=== PATIENT | male | born 1940 | race Caucasian/White ===

== ENCOUNTER 2017-05-10 11:56 | Emergency (ER) | payer OTHER, BC ==
[~2017-05-10 11:56] MED LIST: ARICEPT5 MG PO; ASACOL HD800 MG PO; ASPIRIN81 M2 PO; BESIVANCE5 ML RIGHT EYE; CEREFOLIN NAC1 EAC1 PO; DEPLIN-ALGAL O1 EAC1 PO; FISH OIL 1,0001 EAC7 PO; LORAZEPAM0.5 MG PO; LOTEMAX5 ML RIGHT EYE; MINOCYCLINE HCL75 M1 PO; PAROXETINE HCL30 MG PO; PROLENSA1.6 ML RIGHT EYE; PROMETHAZINE HC25 M1 PO; PROTONIX40 MG PO; TOPROL XL25 MG PO; VITAMIN D1000 INTUN PO
== END 2017-05-10 16:56 ==
LOC: TRA 11:56
PROC: 5A12012 Performance of Cardiac Output, Single, Manual (ICD-10-PCS; principal; 2017-05-10)
DX: I46.9 Cardiac arrest, cause unspecified (principal); Z95.0 Presence of cardiac pacemaker; Z79.82 Long term (current) use of aspirin
CPT/HCPCS: 92950; 99281; 99285; J0282